=== PATIENT | female | born 1980 | race Caucasian/White ===

== ENCOUNTER → 2019-09-21 07:59 | Outpatient (CLI) | payer OTHER, SELFPAY ==
--- NOTE | 2019-09-21 07:35 | BI_ITS ---
MAMMOGRAPHY - BILATERAL SCREENING REASON FOR EXAM: Female, 38 years old. Routine annual screening examination. PERTINENT HISTORY: Grandmother with breast cancer. TECHNIQUE: Digital bilateral breast tammy (3D mammographic acquisition) in the CC and MLO projections. 2-D mediolateral oblique (MLO) and craniocaudad (CC) views of both breasts were obtained. CAD: Full Field Digital Mammography with Computer Added Detection was performed. COMPARISON: None. Baseline examination. FINDINGS: Breast Composition: The breasts are heterogeneously dense, which may obscure small masses. There are no dominant masses or suspicious calcifications. No other significant abnormalities are identified. BI/SCREEN MAMM (CAD) W/TAMMY BILAT IMPRESSION: Negative screening mammogram. Yearly followup mammogram recommended. (A) ASSESSMENT CATEGORY: BIRADS Category 1: Negative. A letter regarding these results will be sent to the patient by the facility within 30 days. Approximately 10% of breast cancers are not detected by mammography. A normal mammogram should not delay biopsy of a clinically suspicious abnormality. [id number] Electronically Signed: Jono Fish, at 8:31 EST , Service support ,
== END ==
LOC: OPBI 08:01
PROVIDERS: PCP Physician Assistant; Referring Provider Obstetrics & Gynecology; Visit Provider Obstetrics & Gynecology
DX: Z12.31 Encounter for screening mammogram for malignant neoplasm of breast (principal)
CPT/HCPCS: 77063; 77067

== ENCOUNTER → 2020-12-11 12:55 | Outpatient (CLI) | payer OTHER, SELFPAY ==
--- NOTE | 2020-12-11 12:58 | BI_ITS ---
MAMMOGRAPHY - BILATERAL SCREENING REASON FOR EXAM: Female, 40 years old. Routine annual screening examination. PERTINENT HISTORY: Non-contributory. TECHNIQUE: Digital bilateral breast tammy (3D mammographic acquisition) in the CC and MLO projections. 2-D mediolateral oblique (MLO) and craniocaudad (CC) views of both breasts were obtained. CAD: Full Field Digital Mammography with Computer Added Detection was performed. COMPARISON: Comparison is made with prior examination dated 09/21/2019. FINDINGS: Breast Composition: The breasts are heterogeneously dense, which may obscure small masses. There are no dominant masses or suspicious calcifications. No other significant abnormalities are identified. There has been no significant change since the prior study. BI/SCRN MAMM (CAD)W/TAMMY BILAT IMPRESSION: Stable bilateral screening mammogram. Yearly follow-up mammogram recommended. (A) ASSESSMENT CATEGORY: BIRADS Category 1: Negative. A letter regarding these results will be sent to the patient by the facility within 30 days. Approximately 10% of breast cancers are not detected by mammography. A normal mammogram should not delay biopsy of a clinically suspicious abnormality. [id number] Electronically Signed: Jono Fish MD at 13:49 EDT , Service support ,
== END ==
PROVIDERS: PCP Physician Assistant; Referring Provider Obstetrics & Gynecology; Visit Provider Obstetrics & Gynecology
DX: Z12.31 Encounter for screening mammogram for malignant neoplasm of breast (principal)
CPT/HCPCS: 77063; 77067

== ENCOUNTER → 2021-12-27 | Outpatient (CLI) | payer OTHER, SELFPAY ==
--- NOTE | 2021-12-27 13:20 | BI_ITS ---
MAMMOGRAPHY - BILATERAL SCREENING REASON FOR EXAM: Female, 41 years old. Routine annual screening examination. PERTINENT HISTORY: Grandmother with breast cancer. TECHNIQUE: Digital bilateral breast tammy (3D mammographic acquisition) in the CC and MLO projections. 2-D mediolateral oblique (MLO) and craniocaudad (CC) views of both breasts were obtained. CAD: Full Field Digital Mammography with Computer Added Detection was performed. COMPARISON: Comparison is made with prior study dated 12/11/2020 and 09/21/2019. FINDINGS: Breast Composition: The breasts are heterogeneously dense, which may obscure small masses. There are no dominant masses or suspicious calcifications. No other significant abnormalities are identified. There has been no significant change since the prior study. BI/SCRN MAMM (CAD)W/TAMMY BILAT IMPRESSION: Stable bilateral screening mammogram. Yearly follow-up mammogram recommended. (A) ASSESSMENT CATEGORY: BIRADS Category 1: Negative. A letter regarding these results will be sent to the patient by the facility within 30 days. Approximately 10% of breast cancers are not detected by mammography. A normal mammogram should not delay biopsy of a clinically suspicious abnormality. [id number] Electronically Signed: Jono Fish MD at 14:51 EDT ,
== END | disposition home or self-care (01) ==
LOC: OPBI 13:17
PROVIDERS: PCP Physician Assistant; Referring Provider Obstetrics & Gynecology; Visit Provider Obstetrics & Gynecology
DX: Z12.31 Encounter for screening mammogram for malignant neoplasm of breast (principal)
CPT/HCPCS: 77063; 77067

== ENCOUNTER → 2022-12-29 | Outpatient (CLI) | payer OTHER, SELFPAY ==
--- NOTE | 2022-12-29 11:50 | BI_ITS ---
MAMMOGRAPHY - BILATERAL SCREENING REASON FOR EXAM: Female, 42 years old. Routine annual screening examination. PERTINENT HISTORY: Grandmother with breast cancer. TECHNIQUE: Digital bilateral breast tammy (3D mammographic acquisition) in the CC and MLO projections. 2-D mediolateral oblique (MLO) and craniocaudad (CC) views of both breasts were obtained. CAD: Full Field Digital Mammography with Computer Added Detection was performed. COMPARISON: Comparison is made with prior study of December 27, 2021 and December 11, 2020. FINDINGS: Breast Composition: The breasts are heterogeneously dense, which may obscure small masses. There are no dominant masses or suspicious calcifications. No other significant abnormalities are identified. There has been no significant change since the prior study. BI/SCRN MAMM (CAD)W/TAMMY BILAT IMPRESSION: Stable bilateral screening mammogram. Yearly follow-up mammogram recommended. (A) ASSESSMENT CATEGORY: BIRADS Category 1: Negative. A letter regarding these results will be sent to the patient by the facility within 30 days. Approximately 10% of breast cancers are not detected by mammography. A normal mammogram should not delay biopsy of a clinically suspicious abnormality. [id number] Electronically Signed: Jono Fish MD at 12:50 EDT ,
== END | disposition home or self-care (01) ==
LOC: OPBI 11:48
PROVIDERS: PCP Physician Assistant; Referring Provider Student in an Organized Health Care Education/Training Program; Visit Provider Student in an Organized Health Care Education/Training Program
DX: Z12.31 Encounter for screening mammogram for malignant neoplasm of breast (principal)
CPT/HCPCS: 77063; 77067

== ENCOUNTER → 2024-03-14 | Outpatient (CLI) | payer OTHER, SELFPAY ==
[2024-03-17 16:10] LABS: HPV APTIMA, High Risk Negative (Negative)
== END | disposition home or self-care (01) ==
LOC: LABSPEC 15:41
PROVIDERS: PCP Physician Assistant; Referring Provider Nurse Practitioner Family; Visit Provider Nurse Practitioner Family
DX: Z12.4 Encounter for screening for malignant neoplasm of cervix (principal)
CPT/HCPCS: 87624; 88175; G0145

== ENCOUNTER → 2024-03-22 | Outpatient (CLI) | payer OTHER, SELFPAY ==
--- NOTE | 2024-03-22 12:48 | BI_ITS ---
MAMMOGRAPHY - BILATERAL SCREENING REASON FOR EXAM: Female, 43 years old. Routine annual screening examination. PERTINENT HISTORY: Grandmother with breast cancer. Aunt with breast cancer. TECHNIQUE: Digital bilateral breast tammy (3D mammographic acquisition) in the CC and MLO projections. 2-D mediolateral oblique (MLO) and craniocaudad (CC) views of both breasts were obtained. CAD: Full Field Digital Mammography with Computer Added Detection was performed. COMPARISON: Comparison is made with prior study dated December 29, 2022 and December 27, 2021. FINDINGS: Breast Composition: The breasts are heterogeneously dense, which may obscure small masses. There are no dominant masses or suspicious calcifications. No other significant abnormalities are identified. There has been no significant change since the prior study. BI/SCRN MAMM (CAD)W/TAMMY BILAT IMPRESSION: Stable bilateral screening mammogram. Yearly follow-up mammogram recommended. (A) ASSESSMENT CATEGORY: BIRADS Category 1: Negative. A letter regarding these results will be sent to the patient by the facility within 30 days. Approximately 10% of breast cancers are not detected by mammography. A normal mammogram should not delay biopsy of a clinically suspicious abnormality. [id number] Electronically Signed: Jono Fish MD at 13:32 EDT ,
--- NOTE | 2024-03-22 13:40 | RAD_ITS ---
STUDY: X-RAY - RIGHT FOOT CLINICAL: Female, 43 years old. Pain following injury. TECHNIQUE: 3 view(s) of the foot. COMPARISON: None. FINDINGS: Normal talus, calcaneus, and tarsal bones. Normal visualized subtalar, talonavicular, calcaneocuboid, tarsal and tarsometatarsal articulations. Nondisplaced oblique fracture of the midportion of the fifth metatarsal. Normal metatarsophalangeal joint of the great toe. Normal tibial and fibular sesamoid bones. Normal interphalangeal joint of the great toe. Normal phalanges of the great toe. Normal second through fifth metatarsophalangeal joints. Normal interphalangeal joints and phalanges of the lesser toes. Soft tissue swelling. RAD/Foot min 3 Views IMPRESSION: Nondisplaced oblique fracture of the fifth metatarsal. Soft tissue swelling. Electronically Signed: Jono Fish MD at 14:45 EDT ,
== END | disposition home or self-care (01) ==
PROVIDERS: PCP Physician Assistant; Referring Provider Nurse Practitioner Family; Visit Provider Nurse Practitioner Family
DX: Z12.31 Encounter for screening mammogram for malignant neoplasm of breast (principal); S92.354A Nondisplaced fracture of fifth metatarsal bone, right foot, initial encounter for closed fracture; X58.XXXA Exposure to other specified factors, initial encounter
CPT/HCPCS: 73630; 77063; 77067

== ENCOUNTER → 2024-06-01 | Outpatient (CLI) | payer OTHER, SELFPAY ==
--- NOTE | 2024-06-01 09:30 | NM_ITS ---
CLINICAL: 43-year-old female with history of right forefoot fifth metatarsal fracture in February 2024, with continued pain and discomfort. LIMITED 99m Tc MDP THREE PHASE BONE SCINTIGRAPHY COMPARISON: Plain film radiograph report right foot 03/22/2024 FINDINGS: Following the intravenous administration of 27.0 mCi of 99m Tc MDP, three-phase bone acquisitions of the distal lower extremities reveal: 1. The flow and immediate static blood pool acquisitions demonstrate normal and symmetric arterial and venous phase distribution of the radiotracer to the bilateral hind mid and forefoot. 2. Delayed images depict focal increased tracer uptake noted in the region of the distal fifth metatarsal. 3. The remaining limited skeletal structures are scintigraphically unremarkable. NM/Bone Scan Limited Area IMPRESSION: 1. Increased uptake noted in the right forefoot-fifth metatarsal is commensurate with continued osteoblastic turnover attributed to trauma-fracture. In patients less than 65 years of age, increased radiopharmaceutical concentration on bone scintigraphy in uncomplicated documented fracture, may take up to 18 months for complete scintigraphic resolution. (Howie et al, Seminars of Nuclear Medicine, 13:104, 1983). Electronically Signed: iMo Aleman DO at 14:03 EDT ,
== END | disposition home or self-care (01) ==
LOC: NM 09:28
PROVIDERS: PCP Physician Assistant; Referring Provider Podiatrist; Visit Provider Podiatrist
DX: M79.671 Pain in right foot (principal)
CPT/HCPCS: 78300; A9503

== ENCOUNTER → 2025-03-31 | Outpatient (CLI) | payer OTHER, SELFPAY ==
--- NOTE | 2025-03-31 10:30 | BI_ITS ---
EXAM: SCRN MAMM (CAD)W/TAMMY BILAT DATE: 03/31/2025 CLINICAL HISTORY: F, Age 44 y/o , SCREEN FOR BREAST CANCER TECHNIQUE: SCRN MAMM (CAD)W/TAMMY BILAT COMPARISON: Prior exam(s) were compared FINDINGS: TISSUE DENSITY: The breasts are heterogeneously dense, which may obscure small masses. Bilateral Breast Mammographic Findings: No suspicious masses, calcifications or other abnormalities are identified. BI/SCRN MAMM (CAD)W/TAMMY BILAT IMPRESSION: No mammographic evidence of malignancy in either breast OVERALL FINAL ASSESSMENT BI-RADS 1: NEGATIVE. RECOMMENDATION: Routine annual follow-up in 1 Year A letter with findings and recommendations will be mailed to the patient. Reading Location: [id number]
== END | disposition home or self-care (01) ==
LOC: OPBI 10:11
PROVIDERS: PCP Physician Assistant; Referring Provider Advanced Practice Midwife; Visit Provider Advanced Practice Midwife
DX: Z12.31 Encounter for screening mammogram for malignant neoplasm of breast (principal)
CPT/HCPCS: 77063; 77067

== ENCOUNTER 2025-07-31 18:00 | Outpatient (RCR) | payer OTHER, SELFPAY ==
--- NOTE | 2025-07-14 12:16 | HP.PTEVAL_ITS ---
Patient's Visit Information Visit Information Visit Information: SIENA LOZADA is a 44 year old F referred to Physical Therapy by Amanda Zacarias CNM with a diagnosis of URINARY INCONTINENCE. Date of Evaluation: 07/14/25 Physical Therapist: Mariam Cornejo PT, Cert MDT Visit Plan Frequency: 1x/Week Duration: 2-4 Months Plan: PF THERAPY FOR STRENGTHENING, LENGTHENING/RELAXATION AND ENDURANCE TRAINING. HEALTHY BLADDER, BACK AND POSTURE HABIT EDUCATION. TRAINING IN COORDINATION OF PELVIC FLOOR MUSCULATURE WITH HIP AND CORE (TRANSVERSE ABDOMINUS) MUSCULATURE. CORE STRENGTHENING. TRAMAINE LE STRETCHING INSTRUCTION. TRAINING IN ABDOMINAL CAVITY PRESSURE MGMT WITH ADL'S. 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 PACKS UP TESTING SUPPLIES SUPPLIES AND TRAVELS 1-2 TIMES A WEEK TO [employer] BUT WORK DOES NOT INVOLVE HEAVY LIFTING. ALSO SITTING IN EVENENINGS TO HELP AT DANCE STUDIO WITH TECH. ABOUT 2-3 TIMES A WK. CROSS FIT 2-3 HRS A WK. WALK/JOG 2-3 HRS A WK - A LOT OF HILLS. Present symptoms: URINARY LEAKING HEAVIER SOMETIMES HEAVIER THAN OTHERS. Present since: STARTED AFTER SECOND /HAVING DAUGHTER ABOUT 10 YEARS AGO (NOTICED WITH COUGHING) AND WORSENDED AFTER FOOT FX SUMMER 2023. Is it getting better, worse or staying the same: STAYING THE SAME Worse: RUNNING IN GYM, QUICK MVMTS, SNEEZING, COUGHING, JUMPING ROPE, NOT BEING AWARE Better: BEING AWARE, DECREASING caffeine. Previous history/Previous treatment: 2 VAGINAL BIRTHS - NO COMPLICATIONS. Treatment this episode: NONE Gait: NORMAL BUT FOOT FX DID NOT FULLY HEAL. How long can you delay the need to urinate: LONG NEEDED TO MAKE IT TO THE BATHROOM IN TIME UNTIL STARTS TO HEAD THERE. OCCASIONALLY HAS UI BEFORE MAKING IT. Prolapse (Falling out feeling): NO Frequency of Urination: ABOUT EVERY 3-4 HRS Ability to stop urine flow: YES Ability to initiate urine stream: NO Dyspareunia: NO Bowel Incontinence: NO Unexplained weight loss: NO Imaging: NO PMH/Recent major surgery: H/O TUMOR ON LIVER - JUST BEING MONITORED BY GI DOCTOR - DX'D 20 YEARS AGO. Fracture of metatarsal of right foot, closed Incontinence Anxiety S/P hernia repair Objective Objective: THIS PATIENT AMBULATES INDEP'LY INTO PT WITH NO GROSS DEVIATIONS NOTED. SHE IS PLEASANT AND COOPERATIVE TO WORK WITH. SHE STANDS WITH MILD ANT PT BUT NO RELEVANT LATERAL LUMBAR SHIFT. Sensory deficit: TRAMAINE LE LIGHT TOUCH SENSATION IS GROSSLY INTACT AND SYMMETRICAL ROM deficit: MILD TRAMAINE LE HS AND CALF TIGHTNESS. MILD L HIP ROTATION TIGHTNESS > L. Motor deficit: TRAMAINE LE'S GROSSLY 5/5. CORE STRENGTH - GOOD-, PELVIC FLOOR: WITH INTERNAL MANUAL VAGINAL TESTING PATIENT HAS 4/5 STRENGTH X 3 X 4 SEC. SHE DOES NOT HAVE DIFFICULTY RELAXING PELVIC FLOOR MUSCLES BETWEEN CONTRACTIONS BUT HER PELVIC FLOOR FATIGUES QUICKLY. Dural Signs: NEGATIVE TRAMAINE LE'S. Lumbar mvmt loss: flex - NIL ext - MIN R SG - MIN L SG - NIL Palpation: WITH INTERNAL MANUAL PALAPATION OF PELVIC FLOOR THERE IS NOT HIGH TONE OR TENDERNESS. FUNCTIONAL SCREEN: Pelvic Organ Prolapse Distress Inventory Score: 1 Urogenital Distress Inventory Score: 9 Goals Goal 1:: DEVELOP HEALTHY FLUID INTAKE HABITS WITH FLUID INTAKE OF ? BODY WEIGHT IN OUNCES PER DAY AND 2/3 BEING WATER. Goal Time Frame: 2-4 Weeks Goal 2:: PATIENT WILL DEMONSTRATE/COMMUNICATE 10 CONSISTENT AND CONSECUTIVE 10 SECOND PELVIC FLOOR MUSCLE CONTRACTIONS TO DEMONSTRATE IMPROVED PELVIC FLOOR STRENGTH AND ENDURANCE TO IMPROVE UI AND FOR BETTER ORGAN SUPPORT. Goal Time Frame: 8-12 Weeks Goal 3:: INCREASE CORE STRENGTH FOR OPTIMAL ORGAN SUPPORT. Goal Time Frame: 8-12 Weeks Goal 4:: PATIENT WILL BE ABLE TO DO CURRENT EXERCISE WITHOUT UI Goal Time Frame: 8-12 Weeks Goal 5:: PATIENT WILL BE ABLE TO COUGH/SNEEZE WITHOUT UI Goal Time Frame: 8-12 Weeks Goal 6:: PATIENT WILL BE INDEP WITH A HEP/HOME INSTRUCTIONS FOR CONTINUED IMPROVEMENT ONCE FORMAL PHYSICAL THERAPY CONCLUDES. Goal Time Frame: 8-12 Weeks Rehabilitation Potential Physical Therapy Diagnosis: PELVIC FLOOR WEAKNESS AND DECREASED ENDURANCE WITH CORE WEAKNESS AND UI. Rehabilitation Potential: Good Anticipated Interventions Patient/Client Instruction: Educate patient on: Condition, Plan of Care, Risk Factors and Benefits of Fitness Program For the Purpose of:: To improve self management Therapeutic Exercise to Include: Strength training, Endurance training, Body mechanics, Postural training, Flexibilty training and Relaxation training For the Purpose of:: To improve muscle performance and motor function, To improve ability of physical actions for home/community/work/leisure, To increase flexibility/ROM, To improve endurance and To improve ability to perform tasks related to life management Text: Thank you for the opportunity to evaluate your patient. For Medicare and Medicare HMO plans, please review the plan of care and approve it. It will need to be FAXED BACK to us at [phone] for Medicare purposes. For Medicare only, by signing this I certify the plan of care. Please let me know if there are questions or concerns regarding this plan of care. Physician Signature: Date:
--- NOTE | 2025-09-15 16:48 | HP.PT.NRP ---
Patient Information Patient Information: SIENA LOZADA was seen in my office for initial evaluation on 07/14/25. The following Plan of Care was established for this patient: POC Established Initial Frequency: 1x/Week Initial Duration: 2-4 Months Anticipated Interventions Patient/Client Instruction: Educate patient on: Condition, Plan of Care, Risk Factors and Benefits of Fitness Program For the Purpose of:: To improve self management Therapeutic Exercise to Include: Strength training, Endurance training, Body mechanics, Postural training, Flexibilty training and Relaxation training For the Purpose of:: To improve muscle performance and motor function, To improve ability of physical actions for home/community/work/leisure, To increase flexibility/ROM, To improve endurance and To improve ability to perform tasks related to life management Last Seen Last Seen: This patient was last seen in our office 07/31/25. Pertinent comments regarding their Physical therapy will appear below: It has been my pleasure to see this patient for a total of 2 visits. This patient has not returned to Physical Therapy for more visits and is appropriate to return to MD for further follow-up as needed. At this point I will be discontinuing this patient from physical therapy. I would be happy to see this patient again in the future if found appropriate by the physician. Thank you! Mariam Cornejo, PT, Cert MDT
== END 2025-07-31 19:00 | disposition home or self-care (01) ==
LOC: PT 18:00
PROVIDERS: PCP Physician Assistant; Visit Provider Registered Nurse
DX: R32 Unspecified urinary incontinence (principal)
CPT/HCPCS: 97162; 97530